=== PATIENT | male | born 1965 | race Hispanic/Latino ===

== ENCOUNTER 2017-05-20 08:09 | Emergency (ER) | payer OTHER ==
[2017-05-20] MEDS ORDERED: Ondansetron HCl/PF 4 MG/2 ML Vial ONE (08:26)
[2017-05-20] MEDS ORDERED: Ketorolac Tromethamine 30 MG/ML VIAL ONE (08:26)
[2017-05-20] MEDS ORDERED: Sodium Chloride 0.9% 1,000 ML ONE (08:26)
[2017-05-20 08:43] LABS: #Basophils 0.1 thou/uL (0.0-0.2); #Eosinphils 0.1 thou/uL (0.0-0.7); #Lymphocytes 2.2 thou/uL (1.20-3.40); #Monocytes 0.4 thou/uL (0.11-0.59); #Neutrophils 3.3 thou/uL (1.40-6.50); %Eosinophils 1.3 % (0.0-10.0); %Lymphocytes 36.5 % (21.0-51.0); %Monocytes 7.2 % (0.0-10.0); %Neutrophils 53.9 % (42.0-75.0); Hemoglobin 16.1 g/dL (14.0-18.0); Mean Corpuscular HGB CONC 33.7 g/dL (32.0-36.0); Mean Corpuscular Hemoglobin 31.1 pg (27.0-31.0); Mean Corpuscular Volume 92.5 fl (80.0-94.0); Mean Platelet Volume 7.1 fL (7.4-10.4); Platelet Count 222 thou/uL (130-400); RBC Distribution Width 12.5 % (11.5-14.5); Red Blood Cell (RBC) Count 5.18 mill/uL (4.70-6.10); White Blood Cell (WBC) Count 6.1 thou/uL (4.8-10.8)
[2017-05-20 08:58] LABS: ALT (SGPT) 83 U/L (8-55); AST (SGOT) 42 U/L (5-34); Albumin 4.4 g/dL (3.5-5.0); Alkaline Phosphatase 86 U/L (40-150); Anion Gap 17 mmol/L (10-20); BUN (Urea Nitrogen) 17 mg/dL (8.9-20.6); Bilirubin, Total 0.9 mg/dL (0.2-1.2); Calc. Creatinine Clearance 0 mL/min (70-130); Carbon Dioxide 26 mmol/L (22-29); Chloride 102 mmol/L (98-107); Estimated GFR-MDRD 87; Globulin 3.4 g/dL (2.4-3.5); Glucose 147 mg/dL (70-105); Potassium 3.8 mmol/L (3.5-5.1); Protein, Total 7.8 g/dL (6.0-8.3); Sodium 141 mmol/L (136-145)
[2017-05-20 09:35] LABS: Bilirubin Negative (Negative); Blood, Urine Moderate (Negative); Clarity Clear (Clear); Glucose, Urine (Dipstick) 500 mg/dL (Negative); Leukocyte Negative (Negative); Nitrite Negative (Negative); Protein, Urine (Dipstick) Negative (Neg-Trace); Urobilinogen 0.2 mg/dL (0.2-1.0)
[2017-05-20 09:47] LABS: Bacteria/HPF Rare-Few HPF (None Seen); Other Microscopic Description NO; Squamous Epithelial 0-3 HPF (0-3); WBC/HPF 0-3 HPF (0-3)
--- NOTE | 2017-05-20 11:04 | RAD ---
AP SUPINE ABDOMINAL RADIOGRAPH: Date: 05/20/17 HISTORY: Left flank pain. History of kidney stones. FINDINGS: There are multiple calcifications overlying the left renal shadow suggesting left nephrolithiasis. A few larger calcifications are seen, the largest measuring approximately 1.2 cm. There is an irregular calcification measuring 9.0 mm seen adjacent to the L4 transverse process on the left, which appears too lateral to represent a calcification within the ureter and may represent a calculus in the infer ior pole left kidney. However, this is difficult to further evaluation. Degenerative changes seen in the spine. There is a nonspecific bowel gas pattern. IMPRESSION: Left nephrolithiasis. Given flank pain, CT scan examination may be beneficial for further evaluation. POS: BRIAN
== END 2017-05-20 10:46 | disposition short-term general hospital (02) ==
LOC: NAV ERS 08:09
DX: N20.1 Calculus of ureter (principal); E11.9 Type 2 diabetes mellitus without complications; K21.9 Gastro-esophageal reflux disease without esophagitis; E78.5 Hyperlipidemia, unspecified; I10 Essential (primary) hypertension; Z79.899 Other long term (current) drug therapy
CPT/HCPCS: 36415; 74018; 80053; 81003; 81015; 85025; 96361; 96374; 96375; J1885; J2405; J7050